=== PATIENT | female | born 1960 | race Caucasian/White ===

== ENCOUNTER 2018-04-09 09:04 | Emergency (ER) | payer BC ==
--- NOTE | 2018-04-09 09:21 | UC ---
Throat Pain/Nasal Elmer HPI - HPI Summary HPI Summary: Sinus congestion, runny nose, postnasal drip and sore throat x2 weeks. Started to have dry cough, occasional clear mucous. Denies fever. Lost voice 8 days ago. - History of Current Complaint Stated Complaint: LARYNGITIS Time Seen by Provider: 04/09/18 09:15 Hx Obtained From: Patient - Allergies/Home Medications Allergies/Adverse Reactions: Allergies Allergy/AdvReac Type Severity Reaction Status Date / Time No Known Allergies Allergy Verified 04/09/18 09:19 Home Medications: Home Medications Calcium Carbonate [Calcium] 500 mg PO DAILY 04/09/18 [History Confirmed 04/09/18 ] Cholecalciferol TAB* [Vitamin D TAB*] 1,000 unit PO DAILY 04/09/18 [History Confirmed 04/09/18] L.acidoph,Paracasei, B.lactis [Probiotic] 1 each PO DAILY 04/09/18 [History Confirmed 04/09/18] Loteprednol Etabonate [Lotemax] 2 drop OP SEE INSTRUCTIONS 04/09/18 [History Confirmed 04/09/18] Multivitamins/Minerals TAB* [Theragran/minerals TAB*] 1 tab PO DAILY 04/09/18 [ History Confirmed 04/09/18] Discharge - Discharge Plan Referrals: Alfonzo mAanda MD [Primary Care Provider] -
[2018-04-09 09:27] VITALS: BP 133/70
--- NOTE | 2018-04-09 09:45 | UC ---
Throat Pain/Nasal Elmer HPI - HPI Summary HPI Summary: C/o approx 8+ days - 2 weeks runny nose, sinus congestion, hoarse voice. + cough min production - when productive clear or yellow white. No hemoptysis. No recent fever. No rash. No GI issues. Throat mild sore. Denies wheezing perse, nor hx thereof. - History of Current Complaint Chief Complaint: UCRespiratory Stated Complaint: LARYNGITIS Time Seen by Provider: 04/09/18 09:15 Hx Obtained From: Patient Pain Intensity: 0 - Allergies/Home Medications Allergies/Adverse Reactions: Allergies Allergy/AdvReac Type Severity Reaction Status Date / Time No Known Allergies Allergy Verified 04/09/18 09:19 Home Medications: Home Medications Calcium Carbonate [Calcium] 500 mg PO DAILY 04/09/18 [History Confirmed 04/09/18 ] Cholecalciferol TAB* [Vitamin D TAB*] 1,000 unit PO DAILY 04/09/18 [History Confirmed 04/09/18] L.acidoph,Paracasei, B.lactis [Probiotic] 1 each PO DAILY 04/09/18 [History Confirmed 04/09/18] Loteprednol Etabonate [Lotemax] 2 drop OP SEE INSTRUCTIONS 04/09/18 [History Confirmed 04/09/18] Multivitamins/Minerals TAB* [Theragran/minerals TAB*] 1 tab PO DAILY 04/09/18 [ History Confirmed 04/09/18] PMH/Surg Hx/FS Hx/Imm Hx Previously Healthy: Yes - Surgical History Surgical History: Yes Surgery Procedure, Year, and Place: trigeminal neuralgia surgeries. endometriosis procedure - Family History Known Family History: Negative: Diabetes - Social History Alcohol Use: Occasionally Substance Use Type: None Smoking Status (MU): Never Smoked Tobacco Review of Systems Constitutional: Negative Skin: Negative Eyes: Other - watery eyes ENT: Other - see hpi Respiratory: Other - see hpi Cardiovascular: Negative Gastrointestinal: Negative Genitourinary: Negative Motor: Negative Neurovascular: Negative Musculoskeletal: Negative Neurological: Negative Psychological: Negative Is Patient Immunocompromised?: No All Other Systems Reviewed And Are Negative: Yes Physical Exam Triage Information Reviewed: Yes Appearance: Well-Nourished Vital Signs: Initial Vital Signs Temp 98.6 F 04/09/18 09:22 Pulse 66 04/09/18 09:22 Resp 13 10/21/18 09:22 BP 133/70 04/09/18 09:22 Pulse Ox 100 04/09/18 09:22 Vital Signs Reviewed: Yes Eye Exam: Other - eyes watery, o/w nad ENT: Positive: Pharyngeal erythema - mild post pharyngeal redness, uvula midline. No sores / exudates. Tongue benign. Trachea midline. No stridor., Other - EAC's cerumen impact bilat Neck exam: Normal Neck: Positive: Supple, Nontender, No Lymphadenopathy Respiratory Exam: Other - + rhonchorus cough Respiratory: Positive: Chest non-tender, Lungs clear, Normal breath sounds, No respiratory distress, No accessory muscle use Cardiovascular Exam: Normal Cardiovascular: Positive: RRR, No Murmur, Pulses Normal, Brisk Capillary Refill Abdominal Exam: Normal Abdomen Description: Positive: Nontender Musculoskeletal Exam: Normal - gait steady Musculoskeletal: Positive: Strength Intact Neurological Exam: Normal - grossly nonfocal Psychological Exam: Normal - conversing easily and appropriately Skin Exam: Normal - no visible or reported rash Throat Pain/Nasal Course/Dx - Course Course Of Treatment: Cerumen flushed by RN. R EAC noteworthy for redness, mild swelling. (infectious vs mechanical, d/w pt, will rx cortisporin otic gtt). RST negative. Reviewed coa / tx plan. Questions as posed answered to the best of my ability. - Differential Dx/Diagnosis Provider Diagnoses: Acute laryngitis. Cerumen impaction bilat. Otitis externa (see above MDM). Discharge - Sign-Out/Discharge Documenting (check all that apply): Patient Departure All imaging exams completed and their final reports reviewed: No Studies - Discharge Plan Condition: Stable Disposition: HOME Prescriptions: Azithromyxin BRIE (NF) [Z-Brie (Zithromax) 250 mg tabs #6] 2 tab PO .TODAY, THEN 1 DAILY #6 tab methylPREDNISolone [Medrol] 4 mg PO DAILY #1 tab.ds.pk Neomyc/Polym/HC 1% OTIC SUSP* [Cortisporin Otic Susp 1%*] 4 drop RIGHT EAR TID 5 Days #1 btl Patient Education Materials: Otitis Externa (ED), Laryngitis (ED), Cerumen Impaction (ED) Referrals: Alfonzo Amanda MD [Primary Care Provider] - Additional Instructions: Drink plenty of fluids. Strep test negative. Follow up with your primary care physician, recommend recheck in approximately 2 weeks. Please seek medical attention for worse or new problems in the meantime. Consider over the counter antihistamine as needed for congestion. - Billing Disposition and Condition Condition: STABLE Disposition: Home
== END 2018-04-09 10:26 | disposition home or self-care (01) ==
LOC: UCCORT 09:04
DX: J04.0 Acute laryngitis (principal); H61.23 Impacted cerumen, bilateral; H60.90 Unspecified otitis externa, unspecified ear
CPT/HCPCS: 87651; 99202; G0463